=== PATIENT | female | born 1965 | race Caucasian/White ===

== ENCOUNTER 2017-01-21 | Emergency (ER) | payer BC, OTHER ==
[2017-01-21 00:09] VITALS: BP 153/77; PULSE 79; TEMP 98.3; BMI 42.4
--- NOTE | 2017-01-21 00:47 | PDOC ---
History of Present Illness - General Chief Complaint: Headache Stated Complaint: BRONSON Time Seen by Provider: 01/21/17 00:09 - History of Present Illness Initial Comments: This 51-year-old woman presents with 1 day history of severe left occipital headache. Patient states that pain began mildly earlier today then became more severe. She is taken and a total of 400 mg ibuprofen without significant relief. Pain is steady without pulsatile pattern; she has no nausea/vomiting/ photophobia. She has no history of migraine or other headaches. No history of trauma to the area. She denies fevers/chills. She has no change in her vision/ speech or difficulty with balance. This been no recent pain/discharge/ decreased hearing in the left or right ear. On retrospect, the patient recalls lifting her 50 pound grandchild last week. After this, she had left shoulder pain. Few days ago, a coworker thought that her left trapezius muscle was "tight. No previous history of Past History - Past Medical History Allergies/Adverse Reactions: Allergies Allergy/AdvReac Type Severity Reaction Status Date / Time iodine [Iodine] Allergy Mild Hives Verified 12/09/15 22:41 Home Medications: Ambulatory Orders Aspirin Coated [Ecotrin -] 81 mg PO HS 06/22/14 Cholecalciferol (Vitamin D3) [Vitamin D3] 4,000 unit PO HS 06/22/14 Cyanocobalamin (Vitamin B-12) [B-12 Dots] 500 mcg PO HS 06/22/14 Lisinopril [Prinivil -] 10 mg PO HS 06/22/14 Ciprofloxacin [Cipro (Restricted To Id)] 500 mg PO Q12H #10 tablet 12/10/15 Sulfamethoxazole/Trimethoprim [Bactrim DS -] 1 tab PO BID #14 tablet 05/17/16 Diclofenac Sodium [Voltaren -] 75 mg PO BID PRN #14 tablet. 01/21/17 Tizanidine HCl [Zanaflex (Nf) -] 2 mg PO TID PRN #10 tablet 01/21/17 HTN: Yes Kidney Stones: Yes Thyroid Disease: Yes (PARATHYROIDECTOMY 1 SIDE) - Immunization History Td Vaccination: Yes Immunization Up to Date: No - Psycho/Social/Smoking Cessation Hx Anxiety: No Suicidal Ideation: No Smoking Status: No Smoking History: Unknown if ever smoked Have you smoked in the past 12 months: No Number of Cigarettes Smoked Daily: 0 Information on smoking cessation initiated: No Hx Alcohol Use: No Drug/Substance Use Hx: No Substance Use Type: None *Physical Exam - Vital Signs Last Vital Signs Temp Pulse Resp BP Pulse Ox 98.3 F 79 15 153/77 100 01/21/17 00:02 01/21/17 00:02 01/21/17 00:02 01/21/17 00:02 01/21/17 00:02 Progress Note - Progress Note Progress Note: Because the patient has no significant history of headache (either tension or migraine-type), she will be have an noncontrast head CT to rule out acute intracranial pathology. Noncontrast head CT shows no evidence of intracranial pathology. Clinical presentation most consistent with muscle spasm/cervical strain. Patient agreed to Toradol 60 mg IM for anti-inflammatory effects. Patient reports significant relief in her pain after Toradol IM. Patient also given Flexeril 10 mg by mouth for muscle relaxation *DC/Admit/Observation/Transfer Diagnosis at time of Disposition: Muscle spasms of neck - Discharge Dispostion Disposition: HOME Condition at time of disposition: Stable - Prescriptions Prescriptions: Diclofenac Sodium [Voltaren -] 75 mg PO BID PRN #14 tablet. PRN Reason: Pain Tizanidine HCl [Zanaflex (Nf) -] 2 mg PO TID PRN #10 tablet PRN Reason: Muscle Spasms - Referrals Referrals: Sonido Braden MD [Staff Physician] - Zonia Sheriff MD [Primary Care Provider] - 1 week - Patient Instructions Printed Discharge Instructions: DI for Neck Pain Additional Instructions: Diclofenac 75 mg twice a day as needed for neck pain Zanaflex 2 mg up to 3 times a day as needed for muscle spasms Drink plenty of water Avoid strenuous activity involving upper body muscles Return to the ER if you have severe, persistent pain Follow-up with Dr. Sheriff within the next week Follow-up with orthopedics () if you have persistent upper back pain
[2017-01-21] MEDS: KETOROLAC TROMETHAMINE 60 MG/2 ML VIAL IM ONE (01:54)
[2017-01-21] MEDS: CYCLOBENZAPRINE HCL 10 MG TABLET (FP) PO ONE (01:54)
[2017-01-21] MEDS ORDERED: KETOROLAC TROMETHAMINE 60 MG/2 ML VIAL ONE (01:56)
[2017-01-21] MEDS ORDERED: CYCLOBENZAPRINE HCL 10 MG TABLET (FP) ONE (01:57)
== END 2017-01-21 02:27 | disposition home or self-care (01) ==
LOC: FER
PROC: 3E0233Z Introduction of Anti-inflammatory into Muscle, Percutaneous Approach (ICD-10-PCS; principal; 2017-01-21)
DX: M62.838 Other muscle spasm (principal); R51 Headache; I10 Essential (primary) hypertension; Z87.442 Personal history of urinary calculi
CPT/HCPCS: 70450-TC; 99282-25

== ENCOUNTER 2017-04-30 21:38 | Emergency (ER) | payer BC, OTHER ==
--- NOTE | 2017-04-30 21:40 | PDOC ---
History of Present Illness - General History Source: Patient Exam Limitations: No Limitations <John Garcia - Last Filed: 04/30/17 22:07> - General History Source: Patient Exam Limitations: No Limitations <Victor ManuelNeshakuldipShivam I - Last Filed: 04/30/17 23:11> - General Chief Complaint: Irregular Heart Beat Stated Complaint: IRREGULAR HEARTBEAT Time Seen by Provider: 04/30/17 21:40 - History of Present Illness Initial Comments: 04/30/17 22:07 The patient is a 51 year old female, with a significant past medical history of hypertension, who presents to the emergency department complaining of palpitations since earlier this morning. The patient reports visiting her PCP for back pain yesterday, and was prescribed prednisone. Patient reports taking her steroids at 20:30 last night, and again at 01:30 this morning. Patient reports she is increasingly tired and has been experiencing palpitations. She denies any chest pain, shortness of breath, diaphoresis or lower extremity edema. She denies any recent travel or sick contacts. She denies any fever, chills, cough, headache, or dizziness. She denies any history of anxiety. She denies any recent travel. Patient was also taking advil for her back pain with no relief. PAST MEDICAL HISTORY: Hypertension PAST SURGICAL HISTORY: no significant history FAMILY HISTORY: Mother: AFib, CHF SOCIAL HISTORY: Pt lives with family and is employed. Non smoker. No ETOH or recreational drug use. MEDICATIONS: Lisinopril ALLERGIES: Iodine PCP: Dr. Sheriff General: No fevers or chills, no weakness, no weight loss HEENT: No change in vision. No sore throat,. No ear pain CardioVascular: Yes: +palpitations. No chest pain or shortness of breath Respiratory: No cough, or wheezing. Gastrointestinal: no nausea, vomiting, diarrhea or constipation, No rectal bleeding Genitourinary: No dysuria, hematuria, or frequency Musculoskeletal: Yes: +back pain. No joint or muscle pain or swelling Neurologic: No headache, vertigo, dizziness or loss of consciousness Psychiatric: No depression Skin: No rashes or easy bruising Endocrine: no increased thirst or abnormal weight change Allergic: no skin or latex allergy All other systems reviewed and normal General: Patient is tearful Well-nourished well-developed individual. HEENT: Throat: Normal, tonsils normal, no erythema or exudate Neck: Supple, no meningeal signs, no lymphadenopathy Eyes::Pupils equal reactive and round, extraocular motion intact Chest: Nontender to palpation Cardiac: S1-S2 normal, regular rate and rhythm, no murmurs rubs or gallops Respiratory: Lungs clear to auscultation bilateral Abdomen: Soft, nondistended, normal bowel sounds, nontender to palpation diffusely Extremities: Warm, dry, no cyanosis, clubbing, or edema Skin: No rashes Neuro: Alert and oriented x3, nonfocal exam, grossly intact, normal gait Psych: Anxious (John Garcia) 04/30/17 23:09 A portion of this note was documented by scribe services under my direction. I have reviewed the details of the note, within reason, and agree with the documentation. The case summary and management plan written by me. EKG normal sinus rhythm at a rate of 96, normal EKG no acute ST-T changes, normal intervals. Assessment and plan: This is a 51-year-old female who comes in complaining of palpitations and a rapid heartbeat however on arrival in the emergency room her EKG was normal and her heart rate was in the 90s. Patient had recently taken some prednisone which most likely contributed to some anxiety and output dictations. Patient had a mildly elevated white count also likely secondary to the prednisone that she had taken. Patient was told to stop taking the prednisone and follow-up with her primary care doctor. (Shivam Kumar I) Past History <John Garcia - Last Filed: 04/30/17 22:07> - Past Medical History HTN: Yes Kidney Stones: Yes Thyroid Disease: Yes (PARATHYROIDECTOMY 1 SIDE) - Immunization History Td Vaccination: Yes Immunization Up to Date: No - Psycho/Social/Smoking Cessation Hx Anxiety: No Suicidal Ideation: No Smoking Status: No Smoking History: Unknown if ever smoked Have you smoked in the past 12 months: No Number of Cigarettes Smoked Daily: 0 Hx Alcohol Use: No Drug/Substance Use Hx: No Substance Use Type: None <Shivam Kumar I - Last Filed: 04/30/17 23:11> - Past Medical History Allergies/Adverse Reactions: Allergies Allergy/AdvReac Type Severity Reaction Status Date / Time iodine [Iodine] Allergy Mild Hives Verified 12/09/15 22:41 Home Medications: Ambulatory Orders Aspirin Coated [Ecotrin -] 81 mg PO HS 06/22/14 Lisinopril [Prinivil -] 10 mg PO HS 06/22/14 - Vital Signs Last Vital Signs Temp Pulse Resp BP Pulse Ox 98 F 110 H 18 157/102 98 04/30/17 21:50 04/30/17 21:50 04/30/17 21:50 04/30/17 21:50 04/30/17 21:50 ED Treatment Course - LABORATORY CBC & Chemistry Diagram: 04/30/17 22:00 <Shivam Kumar I - Last Filed: 04/30/17 23:11> - ADDITIONAL ORDERS Additional order review: Laboratory Results 04/30/17 22:00 Creatine Kinase 69 Troponin I < 0.03 L 04/30/17 22:00 RBC 5.19 MCV 82.6 MCHC 33.9 RDW 13.4 MPV 7.6 Neutrophils % 72.2 Lymphocytes % 23.7 Monocytes % 3.5 L Eosinophils % 0.2 D Basophils % 0.4 *DC/Admit/Observation/Transfer <John Garcia - Last Filed: 04/30/17 22:07> <Shivam Kumar I - Last Filed: 04/30/17 23:11> Diagnosis at time of Disposition: Palpitations - Discharge Dispostion Disposition: HOME Condition at time of disposition: Stable - Referrals Referrals: Zonia Sheriff MD [Primary Care Provider] - - Patient Instructions Additional Instructions: Stop taking the prednisone. For back pain you can take Naprosyn 2 tablets twice a day in addition to that you can also take Tylenol as directed on the bottle. Return to the emergency department immediately with ANY new, persistent or worsening symptoms. Continue any medications as previously prescribed by your physician. You should follow up with your primary doctor as soon as possible regarding today's emergency department visit. . Please make sure your doctor reviews the results of your emergency evaluation. Thank you for coming to the Emergency Department today for your care. It was a pleasure to see you today. Please note that your evaluation is INCOMPLETE until you follow-up with your doctor. - Attestations Scribe Attestion: 04/30/17 22:08 Documentation prepared by John Garcia, acting as bio medical technician for Shivam Kumar MD. (John Garcia)
[2017-04-30 21:53] VITALS: BP 157/102; PULSE 110; TEMP 98; BMI 42.9
[2017-04-30 22:15] LABS: BASOPHIL 0.4 % (0-2.0); EOSINOPHIL 0.2 % (0-4.5); MCHC 33.9 g/dl (32.0-36.0); MEAN CELL VOLUME 82.6 fl (80-96); MEAN PLT VOLUME 7.6 fl (7.5-11.1); NEUTROPHILS 72.2 % (42.8-82.8); PLATELET COUNT 472 K/MM3 (134-434); RDW 13.4 % (11.6-15.6); WHITE BLOOD COUNT 16.5 K/mm3 (4.0-10.8)
[2017-04-30 22:30] LABS: CPK(DFH) 69 IU/L (26-140)
[2017-04-30 22:43] LABS: TROPONIN I (DFP) < 0.03 ng/ml (0.03-0.50)
--- NOTE | 2017-05-03 14:56 | EKG ---
Test Reason : Blood Pressure : / mmHG Vent. Rate : 096 BPM Atrial Rate : 096 BPM P-R Int : 138 ms QRS Dur : 084 ms QT Int : 358 ms P-R-T Axes : 031 007 030 degrees QTc Int : 452 ms POOR DATA QUALITY, INTERPRETATION MAY BE ADVERSELY AFFECTED NORMAL SINUS RHYTHM NORMAL ECG NO PREVIOUS ECGS AVAILABLE Confirmed by RAUL OWEN MD ([id number]) on 05/03/2017 2:56:34 PM Referred By: MD DEL CID Confirmed By:RAUL OWEN MD
== END 2017-04-30 23:14 | disposition home or self-care (01) ==
LOC: FER 21:38
DX: R00.2 Palpitations (principal); I10 Essential (primary) hypertension; Z87.442 Personal history of urinary calculi; E07.9 Disorder of thyroid, unspecified
CPT/HCPCS: 36415; 82550; 84484; 85025; 93005; 93010; 99281-25

== ENCOUNTER 2017-11-12 21:23 | Emergency (ER) | payer BC, OTHER ==
--- NOTE | 2017-11-12 21:27 | PDOC ---
History of Present Illness - General History Source: Patient Exam Limitations: No Limitations - History of Present Illness Initial Comments: 11/12/17 21:29 The patient is a year old female with a past significant medical history of hypertension who presents to the emergency department with persistent dry cough since a few days ago. She reports experiencing similar symptoms in the past. She reports visiting an urgent care and was tested negative for strep two days ago. She denies any history of asthma. She denies any allergies to azithromycin. PCP Dr. Bonnie Pérez She denies any fever, chills, nausea, vomiting, and diarrhea. She denies any chest pain, shortness of breath, and lightheadedness. 11/12/17 21:29 PAST MEDICAL HISTORY: no significant history PAST SURGICAL HISTORY: no significant history FAMILY HISTORY: no pertinent history MEDICATIONS: reviewed ALLERGIES: As per nursing notes Adult ROS General: No fevers or chills, no weakness, no weight loss HEENT: No change in vision. No sore throat,. No ear pain CardioVascular: No chest pain or shortness of breath Respiratory:dry cough. No wheezing. Gastrointestinal: no nausea, vomiting, diarrhea or constipation, Genitourinary: No dysuria, hematuria, or frequency Musculoskeletal: No joint or muscle pain or swelling Neurologic: No headache, vertigo, dizziness or loss of consciousness Psychiatric: nor depression Skin: No rashes or easy bruising Endocrine: no increased thirst or abnormal weight change Allergic: no skin or latex allergy All other systems reviewed and normal GENERAL: The patient is awake, alert, and fully oriented, in no acute distress. Coughing on examination. HEAD: Normal with no signs of trauma. EYES: Pupils equal, round and reactive to light, extraocular movements intact, sclera anicteric, conjunctiva clear. Chest: Nontender to palpation Cardiac: S1-S2 normal, regular rate and rhythm, no murmurs rubs or gallops Respiratory: Lungs clear to auscultation bilateral EXTREMITIES: Normal range of motion, no edema. NEUROLOGICAL: Normal speech, normal gait. PSYCH: Normal mood, normal affect. SKIN: Warm, Dry, normal turgor, no rashes or lesions noted. <Desi Barragan - Last Filed: 11/12/17 21:55> - General History Source: Patient Exam Limitations: No Limitations - History of Present Illness Initial Comments: A portion of this note was documented by scribe services under my direction. I have reviewed the details of the note, within reason, and agree with the documentation. The case summary and management plan written by me. Assessment and plan: This is a 52-year-old female who comes in this evening complaining of a persistent dry cough times several days. Patient denies any fevers. Patient recently side urgent care center and was tested for strep as she did initially have a sore throat with the symptoms. Patient otherwise has a history of hypertension but is without any other complaints. Patient's exam was normal including a normal lung exam with no wheezing and lungs were clear Patient was started on a Z-Joseph and a prescription for Tessalon was sent to her pharmacy. Patient was discharged told to follow-up with her primary care doctor <Shivam Kumar I - Last Filed: 11/12/17 22:11> - General Chief Complaint: Cold Symptoms Stated Complaint: COUGH Time Seen by Provider: 11/12/17 21:26 Past History <Desi Barragan - Last Filed: 11/12/17 21:55> - Past Medical History HTN: Yes Kidney Stones: Yes Thyroid Disease: Yes (PARATHYROIDECTOMY 1 SIDE) - Immunization History Td Vaccination: Yes Immunization Up to Date: No - Suicide/Smoking/Psychosocial Hx Smoking Status: No Smoking History: Unknown if ever smoked Have you smoked in the past 12 months: No Number of Cigarettes Smoked Daily: 0 Hx Alcohol Use: No Drug/Substance Use Hx: No Substance Use Type: None <Shivam Kumar I - Last Filed: 11/12/17 22:11> - Past Medical History Allergies/Adverse Reactions: Allergies Allergy/AdvReac Type Severity Reaction Status Date / Time iodine [Iodine] Allergy Mild Hives Verified 12/09/15 22:41 Home Medications: Ambulatory Orders Aspirin Coated [Ecotrin -] 81 mg PO HS 06/22/14 Lisinopril [Prinivil -] 10 mg PO HS 06/22/14 Azithromycin 250 mg PO DAILY #4 tablet 11/12/17 Benzonatate [Tessalon Pearls -] 100 mg PO TID #21 capsule 11/12/17 Review of Systems - Review of Systems Able to Perform ROS?: Yes All Other Systems: Reviewed and Negative <Desi Barragan - Last Filed: 11/12/17 21:55> *DC/Admit/Observation/Transfer - Attestations Scribe Attestion: 11/12/17 21:28 Documentation prepared by Desi Barragan, acting as medical record consultant for Shivam Kumar MD/DO. <Desi Barragan - Last Filed: 11/12/17 21:55> <Shivam Kumar I - Last Filed: 11/12/17 22:11> Diagnosis at time of Disposition: Bronchitis - Discharge Dispostion Disposition: HOME Condition at time of disposition: Stable - Prescriptions Prescriptions: Azithromycin 250 mg PO DAILY #4 tablet Benzonatate [Tessalon Pearls -] 100 mg PO TID #21 capsule - Referrals Referrals: Zonia Sheriff MD [Primary Care Provider] - - Patient Instructions Additional Instructions: Take azithromycin 1 tablet a day for the next 4 days starting tomorrow evening. The cough take Tessalon Perles 1 tablet 3 times a day swallow do not chew as it will numb your mouth. Tylenol or Motrin as needed for pain. Return to the emergency department immediately with ANY new, persistent or worsening symptoms. Continue any medications as previously prescribed by your physician. You should follow up with your primary doctor as soon as possible regarding today's emergency department visit. . Please make sure your doctor reviews the results of your emergency evaluation. Thank you for coming to the Emergency Department today for your care. It was a pleasure to see you today. Please note that your evaluation is INCOMPLETE until you follow-up with your doctor. - Post Discharge Activity
[2017-11-12] MEDS ORDERED: AZITHROMYCIN 500 MG TABLET ONE (21:37)
[2017-11-12] MEDS ORDERED: AZITHROMYCIN 250 MG TABLET PO ONE (21:38)
[2017-11-12 21:41] VITALS: BP 152/87; PULSE 90; TEMP 98.5; BMI 43.8
== END 2017-11-12 21:56 | disposition home or self-care (01) ==
LOC: FER 21:23
DX: J40 Bronchitis, not specified as acute or chronic (principal); I10 Essential (primary) hypertension
CPT/HCPCS: 99281-25

== ENCOUNTER 2018-03-02 21:41 | Emergency (ER) | payer BC, OTHER ==
[2018-03-02 21:49] VITALS: BP 149/80; PULSE 100; TEMP 98.5; BMI 43.8
--- NOTE | 2018-03-02 23:59 | PDOC ---
History of Present Illness - General Chief Complaint: Pain Stated Complaint: R ANKLE Time Seen by Provider: 03/02/18 21:55 - History of Present Illness Initial Comments: This 52-year-old woman with a history of hypertension presents with injury to her right ankle. This evening, just prior to presentation, as she was walking her dog, the patient turned her right ankle as she stepped into a pothole. Since then, she has had swelling and pain in the ankle, especially with weightbearing. The patient has had previous episodes of right ankle sprain but not for several years. No history of lower extremity fracture. Patient did not sustain any other injury and denies neck pain/loss of consciousness. Patient has not taken any medication for her pain. Past History - Past Medical History Allergies/Adverse Reactions: Allergies Allergy/AdvReac Type Severity Reaction Status Date / Time iodine [Iodine] Allergy Mild Hives Verified 12/09/15 22:41 Home Medications: Ambulatory Orders Aspirin Coated [Ecotrin -] 81 mg PO HS 06/22/14 Lisinopril [Prinivil -] 10 mg PO HS 06/22/14 Azithromycin 250 mg PO DAILY #4 tablet 11/12/17 Benzonatate [Tessalon Pearls -] 100 mg PO TID #21 capsule 11/12/17 COPD: No HTN: Yes Kidney Stones: Yes Thyroid Disease: Yes (PARATHYROIDECTOMY 1 SIDE) - Immunization History Td Vaccination: Yes Immunization Up to Date: No - Suicide/Smoking/Psychosocial Hx Smoking Status: No Smoking History: Unknown if ever smoked Have you smoked in the past 12 months: No Number of Cigarettes Smoked Daily: 0 Information on smoking cessation initiated: No Hx Alcohol Use: No Drug/Substance Use Hx: No Substance Use Type: None Review of Systems - Review of Systems Able to Perform ROS?: Yes Comments:: 12 point review of systems is negative except for what is noted in the history of present illness *Physical Exam - Vital Signs Last Vital Signs Temp Pulse Resp BP Pulse Ox 98.5 F 100 H 14 149/80 98 03/02/18 21:44 03/02/18 21:44 03/02/18 21:44 03/02/18 21:44 03/02/18 21:44 - Physical Exam Comments: GENERAL: HEAD: Normal with no signs of trauma. EXTREMITIES: Right lower extremity-moderate lateral malleolus edema/tenderness; no deformity or ecchymosis No ligamentous instability of ankle No foot edema/ tenderness/deformity/ecchymosis Extremity exam otherwise normal NEUROLOGICAL: Cranial nerves II through XII grossly intact. Normal speech. No focal neurological deficits. MUSCULOSKELETAL: Back non-tender to palpation, no CVA tenderness SKIN: Warm, Dry, normal turgor, no rashes or lesions noted. ED Treatment Course - RADIOLOGY Radiology Studies Ordered: Category Date Time Status ANKLE-RIGHT [RAD] Stat Radiology 03/02/18 21:48 Completed Progress Note - Progress Note Progress Note: Right ankle x-rays performed and interpreted by Dr. Watson of the radiology staff: degenerative changes are present (calcaneal spurs) along with soft tissue swelling but no acute fracture/dislocation seen Results discussed with the patient. Conrad wrap followed by ankle stirrup splint applied. Patient was given crutches and crutch walking instructions given. The patient has been followed by [facility] in the past: She will follow-up there if pain/swelling is persistent. Meanwhile, she should elevate her right leg tomorrow as much as possible (no work) and apply ice to the area of swelling in her ankle. Patient was given Motrin 600 mg now and she should continue OTC ibuprofen/naproxen/acetaminophen as needed for pain *DC/Admit/Observation/Transfer Diagnosis at time of Disposition: Right ankle sprain Qualifiers: Encounter type: initial encounter Involved ligament of ankle: posterior talofibular ligament Qualified Code(s): S93.491A - Sprain of other ligament of right ankle, initial encounter - Discharge Dispostion Disposition: HOME Condition at time of disposition: Stable - Referrals Referrals: Aris Briones MD [Staff Physician] - - Patient Instructions Printed Discharge Instructions: Ankle Sprain Additional Instructions: Ice/elevation of right ankle as much as possible over the next 2 days Conrad wrap to right ankle during the day for the next 3 days Crutches for ambulation for the next 3 days No work tomorrow Ankle splint when up and around for the next week Ibuprofen/naproxen/acetaminophen as needed for pain Follow-up with your orthopedist if you continue to have pain/swelling for more than 7 days - Post Discharge Activity Forms/Work/School Notes: Back to Work
[2018-03-03] MEDS ORDERED: IBUPROFEN 600 MG TABLET (FP) PO ONE ×2 (00:13→00:18)
== END 2018-03-03 00:23 | disposition home or self-care (01) ==
LOC: FER 21:41
DX: S93.491A Sprain of other ligament of right ankle, initial encounter (principal); X58.XXXA Exposure to other specified factors, initial encounter; Y93.89 Activity, other specified; Y92.410 Unspecified street and highway as the place of occurrence of the external cause; I10 Essential (primary) hypertension; E07.9 Disorder of thyroid, unspecified
CPT/HCPCS: 73610-TC-RT-FY; 99282-25

== ENCOUNTER 2018-03-24 21:21 | Emergency (ER) | payer BC, OTHER ==
--- NOTE | 2018-03-24 21:24 | PDOC ---
History of Present Illness - General History Source: Patient Exam Limitations: No Limitations - History of Present Illness Initial Comments: 03/24/18 22:01 The patient is a 52 year old female with a significant past medical history of hypertension and kidney stones who presents to the emergency department for evaluation of sore throat and cough. The patient reports a 1 day history of multiple episodes of non-productive cough. She reports moderate throat pain secondary to her sore throat and mild chest pain. She reports an episode of shortness of breath this morning. She reports associated symptoms of fever with T max 100 (taken earlier today), wheezing, and nasal congestion. The patient reports visiting an Urgent Care yesterday and was given amoxicillin for her sore throat, but states she is visiting the emergency department today for evaluation of her persistent cough. The patient denies history of asthma, but notes she used an inhaler during a previous episode of bronchitis 2 years ago. The patient denies headache, dizziness, fevers, chills, nausea, vomiting, diarrhea, and constipation. Denies dysuria, frequency, urgency, and hematuria. Allergies: Iodine Past surgical history: , Hysterectomy, Varicose veins, Parathyroidectomy Social history: No reported cigarette, alcohol, or drug use. PCP: Dr. Zonia Sheriff ([phone]) <Sugey Leal - Last Filed: 03/24/18 22:04> <Paradise Hernandez - Last Filed: 03/25/18 01:26> - General Chief Complaint: Cold Symptoms Stated Complaint: COUGH Past History <Sugey Leal - Last Filed: 03/24/18 22:04> - Past Medical History COPD: No HTN: Yes Kidney Stones: Yes Thyroid Disease: Yes (PARATHYROIDECTOMY 1 SIDE) - Immunization History Td Vaccination: Yes Immunization Up to Date: No - Suicide/Smoking/Psychosocial Hx Smoking Status: No Smoking History: Unknown if ever smoked Have you smoked in the past 12 months: No Number of Cigarettes Smoked Daily: 0 Hx Alcohol Use: No Drug/Substance Use Hx: No Substance Use Type: None <Paradise Hernandez - Last Filed: 03/25/18 01:26> - Past Medical History Allergies/Adverse Reactions: Allergies Allergy/AdvReac Type Severity Reaction Status Date / Time iodine [Iodine] Allergy Mild Hives Verified 12/09/15 22:41 Home Medications: Ambulatory Orders Aspirin Coated [Ecotrin -] 81 mg PO HS 06/22/14 Lisinopril [Prinivil -] 10 mg PO HS 06/22/14 Albuterol Sulfate Inhaler - [Ventolin HFA Inhaler -] 2 inh PO Q6H PRN #1 inh Amox-Tr/K Cl [Augmentin - 875Mg Tablet] 1 tab PO BID 03/24/18 Benzonatate [Tessalon Pearls -] 200 mg PO TID PRN #30 cap 03/24/18 Review of Systems - Review of Systems Able to Perform ROS?: Yes Comments:: All systems are reviewed and negative except as noted in the HPI <Sugey Leal - Last Filed: 03/24/18 22:04> *Physical Exam - Vital Signs Last Vital Signs Temp Pulse Resp BP Pulse Ox 99.2 F 104 H 16 152/74 97 03/24/18 21:23 03/24/18 21:23 03/24/18 21:23 03/24/18 21:23 03/24/18 21:23 - Physical Exam Comments: GENERAL: The patient is awake, alert, and fully oriented, in no acute distress. HEAD: Normal with no signs of trauma. EYES: Pupils equal, round and reactive to light, extraocular movements intact, sclera anicteric, conjunctiva clear. LUNGS: (+) Scattered expiratory wheezing, left greater than right, with good air movement. HEART: Regular rate and rhythm, normal S1 and S2 without murmur, rub or gallop. ABDOMEN: Soft, nontender, normoactive bowel sounds. No tenderness. No guarding, no rebound. No masses. EXTREMITIES: Normal range of motion, no edema. NEUROLOGICAL: Normal speech, normal gait. PSYCH: Normal mood, normal affect. SKIN: Warm, Dry, normal turgor, no rashes or lesions noted. <Sugey Leal - Last Filed: 03/24/18 22:04> ED Treatment Course - Medications Given in the ED: ED Medications Discontinued Medications Generic Name Dose Route Start Last Admin Trade Name Freq PRN Reason Stop Dose Admin Albuterol/Ipratropium 1 amp 03/24/18 21:53 03/24/18 21:57 Duoneb - NEB 03/24/18 21:54 1 amp ONCE ONE Administration <Sugey Leal - Last Filed: 03/24/18 22:04> Medical Decision Making - Medical Decision Making Documentation has been prepared under my direction and personally reviewed by me in its entirety. I attest that this documented accurately reflects all work, treatment, procedures and medical decision making performed by me. As noted above, this 52-year-old woman, with no history of asthma/COPD or other chronic respiratory illnesses presents with 1 day history of nonproductive cough after upper respiratory symptoms. Patient has apparently needed inhaler in the past during viral bronchitis. She is currently taking Augmentin and using Flonase/Zyrtec as per urgent care seen yesterday. Patient presents tonight because of persistent nonproductive cough and chest congestion. Exam as noted, the patient has evidence of bronchospasm with wheezing especially on the left side. DuoNeb nebulizer treatment given. Patient feels better and repeat lung exam reveals clear lung sounds throughout after nebulizer treatment. Patient will be discharged with prescriptions sent for albuterol inhaler to be used as needed as well as Tessalon Perles 200 mg up to 3 times a day as needed for cough. She should continue Augmentin as previously prescribed as well as the other medications for upper respiratory symptoms. She will follow-up with her PMD, Dr. Sheriff within the next several days (patient states she will call the office tomorrow to arrange follow-up). She should return to the emergency room if she has persistent shortness of breath/congestion/wheezing or high fever <Paradise Hernandez - Last Filed: 03/25/18 01:26> *DC/Admit/Observation/Transfer - Attestations Scribe Attestion: Documentation prepared by Sugey Leal, acting as medical assistant dermatology for Paradise Hernandez MD. <Sugey Leal - Last Filed: 03/24/18 22:04> <Paradise Hernandez - Last Filed: 03/25/18 01:26> Diagnosis at time of Disposition: Bronchitis - Discharge Dispostion Disposition: HOME Condition at time of disposition: Stable - Prescriptions Prescriptions: Albuterol Sulfate Inhaler - [Ventolin HFA Inhaler -] 2 inh PO Q6H PRN #1 inh PRN Reason: Wheezing Benzonatate [Tessalon Pearls -] 200 mg PO TID PRN #30 cap PRN Reason: Cough - Referrals Referrals: Zonia Sheriff MD [Primary Care Provider] - - Patient Instructions Printed Discharge Instructions: DI for Acute Bronchitis Additional Instructions: Continue medications as prescribed, including Augmentin Take Augmentin with food Drink plenty of fluids; rest Tessalon Perles 2 -3 times a day as needed for cough Albuterol inhaler 2 puffs up to 4 times a day as needed for wheezing/chest tightness Return to ER if you have persistent wheezing or chest tightness Follow-up with Dr. Sheriff within the next 5-7 days - Post Discharge Activity
[2018-03-24 21:30] VITALS: BP 152/74; PULSE 104; TEMP 99.2; BMI 43.8
[2018-03-24] MEDS ORDERED: ALBUTEROL SO4 2.5/IPRATROPIUM 0.5 INH SOL 3 ML VIAL.NEB. NEB ONE ×2 (21:53→21:54)
== END 2018-03-24 22:29 | disposition home or self-care (01) ==
LOC: FER 21:21
PROC: 3E0F7GC Introduction of Other Therapeutic Substance into Respiratory Tract, Via Natural or Artificial Opening (ICD-10-PCS; principal; 2018-03-24)
DX: J40 Bronchitis, not specified as acute or chronic (principal); I10 Essential (primary) hypertension; Z87.442 Personal history of urinary calculi
CPT/HCPCS: 99281-25; J7620

== ENCOUNTER 2018-11-15 13:17 | Emergency (ER) | payer BC, OTHER ==
[2018-11-15 13:39] VITALS: TEMP 98.1; BMI 43.8
[2018-11-15 13:58] LABS: URINE APPEARANCE Clear; URINE BILIRUBIN Negative (NEGATIVE); URINE COLOR Yellow; URINE GLUCOSE (UA) Negative (NEGATIVE); URINE KETONE Negative (NEGATIVE); URINE LEUK ESTERASE 3+ (NEGATIVE); URINE NITRITE Negative (NEGATIVE); URINE PROTEIN Negative (NEGATIVE); URINE UROBILINOGEN 0.2 (0.2-1.0)
[2018-11-15 14:00] LABS: EPI CELLS 2+ /HPF; URINE BACTERIA 1+ /hpf (NEGATIVE); URINE MUCUS 1+; URINE WBC 20-40 (0-5)
[2018-11-15] MEDS ORDERED: NAPROXEN 500 MG TABLET (FP) PO ONE (14:03)
[2018-11-15] MEDS ORDERED: NAPROXEN 500 MG TABLET (FP) ONE (14:24)
--- NOTE | 2018-11-15 14:48 | PDOC ---
History of Present Illness - General History Source: Patient Exam Limitations: No Limitations <DianeFrancois - Last Filed: 11/15/18 15:11> - History of Present Illness Initial Comments: 11/15/18 14:52 The patient is a 53 year old female with a past medical history of hypertension and parathyroidectomy who presents to the emergency department for evaluation of a 3 day history of left flank pain. She reports associated symptoms of urinary frequency and urgency. The patient denies chest pain, shortness of breath, headache, and dizziness. Denies fevers, chills, nausea, vomiting, diarrhea, and constipation. Allergies: Iodine Past surgical history: , hysterectomy, varicose veins, tubal ligation, renal stone removal. Social history: No reported cigarette, alcohol, or drug use. <Sugey Leal - Last Filed: 11/15/18 15:25> - General Chief Complaint: Pain, Acute Stated Complaint: left flank pain Time Seen by Provider: 11/15/18 13:20 Past History - Past Medical History COPD: No HTN: Yes Kidney Stones: Yes (kidney infection) Thyroid Disease: Yes (PARATHYROIDECTOMY 1 SIDE) - Immunization History Td Vaccination: Yes Immunization Up to Date: No - Suicide/Smoking/Psychosocial Hx Smoking Status: No Smoking History: Never smoked Have you smoked in the past 12 months: No Number of Cigarettes Smoked Daily: 0 Hx Alcohol Use: No Drug/Substance Use Hx: No Substance Use Type: None <Francois Contreras - Last Filed: 11/15/18 15:11> <Sugey Leal - Last Filed: 11/15/18 15:25> - Past Medical History Allergies/Adverse Reactions: Allergies Allergy/AdvReac Type Severity Reaction Status Date / Time iodine [Iodine] Allergy Mild Hives Verified 11/15/18 13:23 Home Medications: Ambulatory Orders Aspirin Coated [Ecotrin -] 81 mg PO HS 06/22/14 Lisinopril [Prinivil -] 10 mg PO HS 06/22/14 Cephalexin [Keflex] 500 mg PO Q8H PRN #42 capsule 11/15/18 Loratadine [Claritin] 10 mg PO DAILY 11/15/18 Naproxen 500 mg PO BID PRN #30 tablet 11/15/18 Review of Systems - Review of Systems Able to Perform ROS?: Yes Comments:: GENERAL/CONSTITUTIONAL: No fever or chills. No weakness. HEAD, EYES, EARS, NOSE AND THROAT: No change in vision. No ear pain or discharge. No sore throat. CARDIOVASCULAR: No chest pain or shortness of breath. RESPIRATORY: No cough, wheezing, or hemoptysis. GASTROINTESTINAL: No nausea, vomiting, diarrhea or constipation. GENITOURINARY: (+)Frequency. (+)Urgency. No dysuria or hematuria. MUSCULOSKELETAL: (+)left flank pain. No joint or muscle swelling or pain. No neck or back pain. SKIN: No rash NEUROLOGIC: No headache, vertigo, loss of consciousness, or change in strength/ sensation. ENDOCRINE: No increased thirst. No abnormal weight change. HEMATOLOGIC/LYMPHATIC: No anemia, easy bleeding, or history of blood clots. ALLERGIC/IMMUNOLOGIC: No hives or skin allergy. <Sugey Leal - Last Filed: 11/15/18 15:25> *Physical Exam - Vital Signs Last Vital Signs Temp Pulse Resp BP Pulse Ox 98.1 F 108 H 18 146/96 100 11/15/18 13:19 11/15/18 13:19 11/15/18 13:19 11/15/18 13:19 11/15/18 13:19 <Francois Contreras - Last Filed: 11/15/18 15:11> - Vital Signs Last Vital Signs Temp Pulse Resp BP Pulse Ox 98.1 F 108 H 18 146/96 100 11/15/18 13:19 11/15/18 13:19 11/15/18 13:19 11/15/18 13:19 11/15/18 13:19 - Physical Exam Comments: GENERAL: Awake, alert, and fully oriented, in no acute distress HEAD: No signs of trauma EYES: PERRLA, EOMI, sclera anicteric, conjunctiva clear NECK: Normal ROM, supple. ABDOMEN: (+)Left sided CVA tenderness. Soft, nontender. No guarding, no rebound. No masses EXTREMITIES: Normal range of motion, no edema. No clubbing or cyanosis. No cords, erythema, or tenderness NEUROLOGICAL: Cranial nerves II through XII grossly intact. Normal speech, normal gait SKIN: Warm, Dry, normal turgor, no rashes or lesions noted. <Sugey Leal - Last Filed: 11/15/18 15:25> Moderate Sedation - Procedure Monitoring Vital Signs: Procedure Monitoring Vital Signs Temperature 98.1 F 11/15/18 13:19 Pulse Rate 108 H 11/15/18 13:19 Respiratory Rate 18 11/15/18 13:19 Blood Pressure 146/96 11/15/18 13:19 O2 Sat by Pulse Oximetry (%) 100 11/15/18 13:19 <Francois Contreras - Last Filed: 11/15/18 15:11> - Procedure Monitoring Vital Signs: Procedure Monitoring Vital Signs Temperature 98.1 F 11/15/18 13:19 Pulse Rate 108 H 11/15/18 13:19 Respiratory Rate 18 11/15/18 13:19 Blood Pressure 146/96 11/15/18 13:19 O2 Sat by Pulse Oximetry (%) 100 11/15/18 13:19 <Sugey Leal - Last Filed: 11/15/18 15:25> ED Treatment Course - ADDITIONAL ORDERS Additional order review: Laboratory Results 11/15/18 13:34 Urine Color Yellow Urine Appearance Clear Urine pH 7.0 Ur Specific Bryan 1.010 Urine Protein Negative Urine Glucose (UA) Negative Urine Ketones Negative Urine Blood 1+ H Urine Nitrite Negative Urine Bilirubin Negative Urine Urobilinogen 0.2 Ur Leukocyte Esterase 3+ H D Urine RBC 5-10 Urine WBC 20-40 Ur Epithelial Cells 2+ Urine Bacteria 1+ Urine Mucus 1+ - RADIOLOGY Radiology Studies Ordered: Category Date Time Status SPIRAL- RENAL-STONE CT [CT] Stat CT Scan 11/15/18 14:03 Taken - Medications Given in the ED: ED Medications Discontinued Medications Generic Name Dose Route Start Last Admin Trade Name Martha PRN Reason Stop Dose Admin Naproxen 500 mg 11/15/18 14:03 11/15/18 14:27 Naprosyn - PO 11/15/18 14:04 500 mg ONCE ONE Administration Oxycodone/Acetaminophen 1 combo 11/15/18 14:03 11/15/18 14:27 Percocet 5/325 - PO 11/15/18 14:04 1 combo ONCE ONE Administration <Francois Contreras - Last Filed: 11/15/18 15:11> - ADDITIONAL ORDERS Additional order review: Laboratory Results 11/15/18 13:34 Urine Color Yellow Urine Appearance Clear Urine pH 7.0 Ur Specific Bryan 1.010 Urine Protein Negative Urine Glucose (UA) Negative Urine Ketones Negative Urine Blood 1+ H Urine Nitrite Negative Urine Bilirubin Negative Urine Urobilinogen 0.2 Ur Leukocyte Esterase 3+ H D Urine RBC 5-10 Urine WBC 20-40 Ur Epithelial Cells 2+ Urine Bacteria 1+ Urine Mucus 1+ - Medications Given in the ED: ED Medications Discontinued Medications Generic Name Dose Route Start Last Admin Trade Name Martha PRN Reason Stop Dose Admin Naproxen 500 mg 11/15/18 14:03 11/15/18 14:27 Naprosyn - PO 11/15/18 14:04 500 mg ONCE ONE Administration Oxycodone/Acetaminophen 1 combo 11/15/18 14:03 11/15/18 14:27 Percocet 5/325 - PO 11/15/18 14:04 1 combo ONCE ONE Administration <Sugey Leal - Last Filed: 11/15/18 15:25> Medical Decision Making - Medical Decision Making 11/15/18 14:43 A portion of this note was written by my scribe, under my supervision. Vital Signs Temp Pulse Resp BP Pulse Ox 98.1 F 108 H 18 146/96 100 11/15/18 13:19 11/15/18 13:19 11/15/18 13:19 11/15/18 13:19 11/15/18 13:19 53 year old F c/ hx parathyroidectomy, HTN, kidney stones and kidney infection presents with 3 days of L flank pain. +dysuria, urinary frequency. Pt states pain feels like potentially kidney stone or kidney infection. No fevers, chills, nausea, vomiting. Urine Test Results Urine Color Yellow 11/15/18 13:34 Urine Appearance Clear 11/15/18 13:34 Urine pH 7.0 (4.5-8) 11/15/18 13:34 Ur Specific Bryan 1.010 (1.010-1.035) 11/15/18 13:34 Urine Protein Negative (NEGATIVE) 11/15/18 13:34 Urine Glucose (UA) Negative (NEGATIVE) 11/15/18 13:34 Urine Ketones Negative (NEGATIVE) 11/15/18 13:34 Urine Blood 1+ (NEGATIVE) H 11/15/18 13:34 Urine Nitrite Negative (NEGATIVE) 11/15/18 13:34 Urine Bilirubin Negative (NEGATIVE) 11/15/18 13:34 Ur Leukocyte Esterase 3+ (NEGATIVE) H D 11/15/18 13:34 Urine RBC 5-10 /hpf (0-3) 11/15/18 13:34 Urine WBC 20-40 (0-5) 11/15/18 13:34 Ur Epithelial Cells 2+ /HPF 11/15/18 13:34 Urine Bacteria 1+ /hpf (NEGATIVE) 11/15/18 13:34 Urine Mucus 1+ 11/15/18 13:34 CT scan shows no kidney stones but possibly passed stones. Will treat as pylenephritis. Pt feels much better after medications. Cephalexin PO 500 mg TID x 14 days. NSAIDS for pain. Follow up with PMD. <Francois Contreras - Last Filed: 11/15/18 15:11> *DC/Admit/Observation/Transfer - Discharge Dispostion Decision to Admit order: No <Francois Contreras - Last Filed: 11/15/18 15:11> - Attestations Scribe Attestion: Documentation prepared by Sugey Leal, acting as emergency medical services coordinator for Francois Contreras MD. <Sugey Leal - Last Filed: 11/15/18 15:25> Diagnosis at time of Disposition: Pyelonephritis - Discharge Dispostion Disposition: HOME Condition at time of disposition: Stable - Prescriptions Prescriptions: Cephalexin [Keflex] 500 mg PO Q8H PRN #42 capsule PRN Reason: Kidney Infection Naproxen 500 mg PO BID PRN #30 tablet PRN Reason: Pain - Patient Instructions Printed Discharge Instructions: DI for Kidney Stones Additional Instructions: Please take 500 mg cephalexin every 8 hours for 14 days. Please complete the antibiotics even if you are feeling better. Take 1 tablet of naproxen every 12 hours as needed for pain. Drink plenty of fluids and rest. Please bring a copy of your CT scan and urine results to your doctor.
[2018-11-15] MEDS ORDERED: CEPHALEXIN 250 MG/5 ML ORAL SUSPENSION PO ONE (15:11)
[2018-11-15] MEDS ORDERED: CEPHALEXIN MONOHYDRATE 500 MG CAPSULE (UD) PO ONE (15:24)
[2018-11-15] MEDS ORDERED: CEPHALEXIN MONOHYDRATE 500 MG CAPSULE (UD) ONE (15:27)
[2018-11-15 15:38] VITALS: BP 136/88; PULSE 90
== END 2018-11-15 15:37 | disposition home or self-care (01) ==
LOC: FER 13:17
DX: N12 Tubulo-interstitial nephritis, not specified as acute or chronic (principal); I10 Essential (primary) hypertension; E89.0 Postprocedural hypothyroidism; Z79.82 Long term (current) use of aspirin
CPT/HCPCS: 74176; 81003; 81015; 87086; 87186; 99282-25